=== PATIENT | female | born 1985 | race Caucasian/White ===

== ENCOUNTER 2023-09-24 22:37 | Inpatient (IN) ==
[2023-09-24] MEDS ORDERED: PENICILLIN GK 6 MU in DEXTROSE 5% 250 ML IV STA (23:16)
[2023-09-24] MEDS ORDERED: LIDOCAINE 1% LOCAL 20 ML VIAL INFIL PRN (23:16)
[2023-09-24] MEDS ORDERED: OXYTOCIN 30 UNITS/NSS 30 UNITS/500 ML BAG IV PRN (23:16)
[2023-09-24] MEDS: LACTATED RINGER'S 1,000 ML IV PRN (23:47)
[2023-09-24 23:58] LABS: Hematocrit (blood only) 38.2 % (37.0-47.0); Mean Corpuscular Hemoglobin 31.6 pg (25.0-34.0); Mean Corpuscular Volume 92.7 fL (80.0-100.0); Mean Platelet Volume 11.9 fL (9.4-12.4); Platelet Count 201 K/uL (130-400); RDW Coefficient of Variation 12.5 % (11.5-14.5); RDW Standard Deviation 42.3 fL (36.4-46.3); Red Blood Count 4.12 M/uL (4.20-5.40); White Blood Count 11.41 K/ul (4.8-10.8)
[2023-09-25] MEDS: PENICILLIN GK 3 MU in DEXTROSE 5% 100 ML IV PRN ×2 (03:21→07:33)
--- NOTE | 2023-09-25 03:55 | History & Physical Report ---
Date of Service September 25, 2023 Assessment & Plan (1) Post term over 40 weeks: (2) Group B streptococcal infection during : Plan admitted, iv and labs done. fhts categ1. some progress in labor. offered arom, pt declines, pcn for gbs pos Admission and Anticipated Discharge Date Admission Date: September 24, 2023 History of Present Illness Chief Complaint: labor Primary Care Provider: NO PCP 38yo at 40w6d ega presents to L&D with regular ctx. Exam on arrival with regular ctx and 4-5cm. No rom. No vb. +FM. GBS pos and 2nd bag of pcn hanging. Wants to labor unmedicated and declines arom. PNC c/b 1. AMA 2. GBS pos PNL rh pos, ri, gbs pos OBH: x 3 GYNH: nl paps no stds Allergies Allergy/AdvReac Type Severity Reaction Status Date / Time No Known Allergies Allergy Verified 09/24/23 22:47 Home Medications Medication Instructions Recorded Confirmed Type prenat.vits,lonnie,[id number]-xpwy-heapt 1 tab PO DAILY 02/02/23 09/24/23 History Patient History Medical History Group B streptococcal infection during (spontaneous vaginal delivery) 2004,2007,2017 History of chicken pox Surgical History Status post surgery Cyst removed from back Family History Denies family history of Ovarian cancer Breast cancer Colorectal cancer Social History (Updated 02/02/23 @ 09:04 by Elaine Eduardo) Smoking Status: Never smoker Do You Dip or Chew Tobacco: No; Hx Alcohol Use: No Hx Substance Use: No Preferred Language: Irish Communication Ability: Effective Tape Weaver Required: No Beliefs That Will Affect Care: None marital status: marital status details: Vero Rascon (45) [phone] Current Living Situation: Spouse Current Living Situation Comment: House with and kids current occupational status: employed current occupation: [employer] Insurance Other Information That Helps Us Care for You: No Feels Safe at Home: Yes Safety Concerns: Feels Safe At This Time Assistive Devices: None Review of Systems as per Subjective / HPI Physical Exam Constitutional: WD/WN, vitals as above Respiratory: normal respiratory effort, lungs clear to auscultation Cardiovascular: Rate/Rhythm: regular rate and regular rhythm Gastrointestinal (Abdomen): soft gravid nt efw 8-9# Musculoskeletal: no edema Neurologic: grossly normal Psychiatric: A+Ox3, euthymic affect Genitourinary: Manual OB Exam: + cervical dilation (5-6), + cervical effacement (80) and + station -2 OB Exam Monitor Tracing: + external FHT mon itor used, + external uterine monitor used (q3), + category I and + normal FHT variability Results & Data Vital Signs (Past 12 Hours) Vital Signs Temp Pulse Resp BP O2 Del Method 09/25/23 02:13 97.9 F 75 20 122/64 09/24/23 22:56 98.1 F 61 18 107/76 09/24/23 22:47 98.1 F 18 Room Air Coding Level of Care Code None Diagnoses Post term over 40 weeks O48.0 Group B streptococcal infection during O98.819; B95.1
[2023-09-25] MEDS ORDERED: ePHEDrine sulfate 50 MG/ML AMP ONE (05:16)
[2023-09-25] MEDS ORDERED: fentANYL 2 MCG/ML BUPIVacaine 0.125%-NSS 100ML BAG ONE (05:16)
[2023-09-25] MEDS ORDERED: BUPIVACAINE 0.25% PF 30 ML VIAL ONE (05:16)
[2023-09-25] MEDS ORDERED: SODIUM CHLORIDE 0.9% PF INJ 10 ML VIAL ONE (05:16)
[2023-09-25] MEDS ORDERED: fentaNYL citrate PF 100 MCG/2 ML VIAL ONE (05:16)
[2023-09-25] MEDS ORDERED: LIDOCAINE 2%/EPINEPHRINE 1:200,000 20 ML PF ONE (05:17)
[2023-09-25] MEDS ORDERED: ONDANSETRON INJ 2 MG/ML 2 ML VIAL IV PRN (05:25)
[2023-09-25] MEDS ORDERED: NALBUPHINE HCL 5 MG in SYRINGE 0 ML IV PRN (05:25)
[2023-09-25] MEDS ORDERED: diphenhydrAMINE 50 MG/ML VIAL IV PRN (05:25)
[2023-09-25] MEDS ORDERED: BUPIVACAINE 0.25% PF 30 ML VIAL EPI PRN (05:25)
[2023-09-25] MEDS ORDERED: fentaNYL citrate PF 100 MCG/2 ML VIAL EPI STA (05:25)
[2023-09-25] MEDS ORDERED: ePHEDrine sulfate 50 MG/ML AMP IV PRN (05:25)
[2023-09-25] MEDS ORDERED: SODIUM CHLORIDE 0.9% PF INJ 10 ML VIAL EPI PRN (05:25)
[2023-09-25] MEDS ORDERED: BUPIVACAINE 0.25% PF 30 ML VIAL EPI STA (05:25)
[2023-09-25] MEDS ORDERED: ROPIVACAINE 0.5% PF 5 MG/ML 20 ML VIAL EPI PRN (05:25)
[2023-09-25] MEDS ORDERED: LIDOCAINE 2% MPF LOCAL 5 ML VIAL EPI PRN (05:25)
[2023-09-25] MEDS ORDERED: LIDOCAINE 2%/EPINEPHRINE 1:200,000 20 ML PF EPI STA (05:25)
[2023-09-25] MEDS ORDERED: NALOXONE HCL 0.4 MG/1 ML VIAL/CARP IV PRN (05:25)
[2023-09-25] MEDS ORDERED: SODIUM CHLORIDE 0.9% PF INJ 10 ML VIAL EPI STA (05:25)
[2023-09-25] MEDS ORDERED: NALOXONE HCL 1 MG in SODIUM CHLORIDE 0.9% 1,000 ML IV PRN (05:25)
[2023-09-25] MEDS ORDERED: fentaNYL citrate PF 100 MCG/2 ML VIAL EPI PRN (05:25)
[2023-09-25] MEDS ORDERED: fentANYL 2 MCG/ML BUPIVacaine 0.125%-NSS 100ML BAG EPI PRN (05:25)
--- NOTE | 2023-09-25 05:25 | Anesthesiology Consultation ---
Date of Service September 25, 2023 Assessment & Plan ASA ASA2 Proposed Anesthesia Anesthesia Type: Labor Epidural Risk / Benefits Reviewed With: PT / POA / Parent / Guardian, Accepts Plan and Informed Consent Obtained History Height/Weight Height: 5 ft Weight: 77.111 kg Allergies Allergy/AdvReac Type Severity Reaction Status Date / Time No Known Allergies Allergy Verified 09/24/23 22:47 Medications Home Medications Medication Instructions Recorded Confirmed Last Taken prenat.vits,lonnie,wok-stkq-qskzr 1 tab PO DAILY 02/02/23 09/24/23 09/24/23 Active Medications Generic Name Dose Route Start Last Admin Trade Name Freq PRN Reason Stop Dose Admin Lactated Ringer's 1,000 mls @ 125 mls/hr 09/24/23 23:16 09/25/23 05:12 Lr IV 09/26/23 23:15 999 mls/hr .Q8H PRN Infusion L&D Protocol Protocol Penicillin G Potassium 3 mu/ 106 mls @ 100 mls/hr 09/25/23 02:16 09/25/23 04:25 Dextrose IV 10/05/23 02:15 Infused Q4H PRN Infusion GBS(+) Until Delivery Past Medical History Medical History Group B streptococcal infection during (spontaneous vaginal delivery) 2004,2007,2017 History of chicken pox Exercise / Class Metabolic Activity II 4-5 Yardwork/Stairs/Walk up hill Past Family History Family History Denies family history of Ovarian cancer Breast cancer Colorectal cancer Past Surgical History Surgical History Status post surgery Cyst removed from back Past Anesthesia History No Hx of Anesthesia Complications and No Family Hx of Anesthesia Complications History of PONV No Hx of PONV and No Hx of Motion Sickness Social History Smoking Status: Never smoker Do You Dip or Chew Tobacco: No Hx Alcohol Use: No Hx Substance Use: No Review of Systems denies fever/cough/ colds/ chest pain/ SOB/ LYNN denies LYNN Physical Exam Vital Signs Last Vital Signs Temp 36.6 C 09/25/23 02:13 Pulse 90 09/25/23 05:22 Resp 20 09/25/23 02:13 BP 122/64 09/25/23 02:13 Pulse Ox 98 09/25/23 05:22 O2 Del Method Room Air 09/24/23 22:47 ENMT Mouth: no TMJ abnormality and no dentition abnormality Thyromental Distance: > or= 3.5 Finger Breadths Mallampati Class: II Neck neck extension not limited Respiratory normal respiratory effort; no respiratory distress Auscultation: lungs clear to auscultation bilaterally Cardiovascular Rate/Rhythm: regular rate and regular rhythm Neurologic moves all extremities Psychiatric Orientation: alert and oriented x 3 Testing Laboratory Results 09/24/23 23:38
[2023-09-25] MEDS: LACTATED RINGER'S 1,000 ML IV PRN ×2 (05:59→09:36)
[2023-09-25] MEDS ORDERED: OXYTOCIN 30 UNITS/NSS 30 UNITS/500 ML BAG IV PRN ×2 (08:29→10:41)
--- NOTE | 2023-09-25 08:32 | Labor Progress Brief Note ---
Date of Service September 25, 2023 Subjective pt with urge to push. Assessment & Plan (1) Post term over 40 weeks: (2) Group B streptococcal infection during : Plan no signficant cx change. cx swollen on right. rec pitocin augmentation. fhts categ 1 but occas variable. will try to change positions. pcn for gbs. Admission and Anticipated Discharge Date Admission Date: September 24, 2023 Physical Exam Constitutional: WD/WN, vitals as above Genitourinary: Manual OB Exam: + cervical dilation 7 cm, + cervical effacement (thick swollen on right. 80% on left) and + station -1 OB Exam Monitor T racing: + external FHT monitor used, + external uterine monitor used (q4-7), + category I and + normal FHT variability Results & Data Vital Signs (Past 12 Hours) Vital Signs Temp Pulse Resp BP Pulse Ox O2 Del Method 09/25/23 08:27 80 94 09/25/23 08:24 76 108/64 09/25/23 08:22 81 95 09/25/23 08:17 81 96 09/25/23 08:12 81 94 09/25/23 08:09 75 130/73 09/25/23 08:07 83 87 L 09/25/23 08:06 84 88 L 09/25/23 08:02 79 97 09/25/23 07:57 91 H 97 09/25/23 07:53 88 124/84 09/25/23 07:52 119 H 100 09/25/23 07:47 95 H 99 09/25/23 07:42 87 98 09/25/23 07:38 88 130/78 09/25/23 07:37 96 H 97 09/25/23 07:32 94 H 97 09/25/23 07:27 84 97 09/25/23 07:23 98 H 119/71 09/25/23 07:22 96 H 97 09/25/23 07:17 91 H 96 09/25/23 07:15 18 09/25/23 07:15 97.9 F 18 09/25/23 07:12 93 H 96 09/25/23 07:07 91 H 96 09/25/23 07:04 88 105/59 L 09/25/23 07:02 92 H 94 09/25/23 07:00 82 107/58 L 09/25/23 06:57 86 18 95 09/25/23 06:55 86 106/57 L 09/25/23 06:52 94 H 94 09/25/23 06:51 87 103/59 L 09/25/23 06:47 97 H 96 09/25/23 06:46 97 H 97/53 L 09/25/23 06:42 80 94 09/25/23 06:39 99 H 97/55 L 09/25/23 06:37 91 H 95 09/25/23 06:34 82 105/58 L 09/25/23 06:32 82 95 09/25/23 06:30 78 109/57 L 09/25/23 06:27 87 95 09/25/23 06:24 91 H 90/53 L 09/25/23 06:22 86 96 09/25/23 06:19 90 107/59 L 89 L 09/25/23 06:17 87 99 09/25/23 06:14 100 H 104/56 L 09/25/23 06:12 92 H 95 09/25/23 06:09 97 H 111/58 L 09/25/23 06:07 101 H 97 09/25/23 06:03 92 H 113/60 09/25/23 06:02 88 93 09/25/23 06:01 88 117/60 09/25/23 05:59 86 117/60 09/25/23 05:57 82 09/25/23 05:57 83 111/57 L 95 09/25/23 05:55 82 104/55 L 09/25/23 05:54 93 09/25/23 05:54 72 09/25/23 05:54 69 100/59 L 09/25/23 05:52 74 100 09/25/23 05:51 74 09/25/23 05:51 84/48 L 09/25/23 05:51 83 87/51 L 09/25/23 05:50 93 H 100/59 L 09/25/23 05:48 96 H 113/66 09/25/23 05:47 87 99 09/25/23 05:46 85 126/60 09/25/23 05:44 95 H 126/77 09/25/23 05:42 88 97 09/25/23 05:41 88 132/90 09/25/23 05:37 87 98 09/25/23 05:32 94 H 98 09/25/23 05:29 93 H 123/85 09/25/23 05:27 100 H 99 09/25/23 05:22 90 98 09/25/23 02:13 97.9 F 75 20 122/64 09/24/23 22:56 98.1 F 61 18 107/76 09/24/23 22:47 98.1 F 18 Room Air Coding Level of Care Code None Diagnoses Post term over 40 weeks O48.0 Group B streptococcal infection during O98.819; B95.1
--- NOTE | 2023-09-25 10:27 | Delivery Summary ---
Vaginal Delivery Summary Date of Service September 25, 2023 Vaginal Delivery Summary The patient dilated to complete and pushed to deliver a viable female infant Apgars 89 and via over intact perineum. Shoulders and body delivered with ease rapidly thereafter. was vigorous and crying at . Mouth and nose bulb suctioned. Cord clamped at 60 seconds of life and infant to maternal abdomen where the cord was then doubly clamped and cut. Placenta delivered spontaneously and intact, three-vessel cord. Hemostasis achieved with dilute pitocin and uterine massage and drainage of the bladder for approximately 300 cc under sterile conditions. Cervix and sulci intact. EBL 300 cc. Mother and baby stable in recovery. [facility] Vaginal Delivery Charge Delivery Type Details:
[2023-09-25] MEDS ORDERED: OXYTOCIN 20 UNITS/LR 1,002 ML IV SCH (10:41)
[2023-09-25] MEDS ORDERED: HYDROCORTISONE ACETATE 25 MG SUPP PR PRN (10:41)
[2023-09-25] MEDS ORDERED: BENZOCAINE 20% SPRY 85 APPLN/85 GM CAN EXT PRN (10:41)
[2023-09-25] MEDS ORDERED: DIPHTHER/TETAN/PERTUS Vaccine (Tdap, Adol/Adult) 0.5mL IM ONE (10:41)
[2023-09-25] MEDS ORDERED: bisacodyL 10 MG SUPP PR PRN (10:41)
[2023-09-25] MEDS ORDERED: ACETAMINOPHEN 325 MG TAB PO PRN (10:41)
[2023-09-25] MEDS ORDERED: oxyCODONE/ACETAMINOPHEN 5mg/325mg TAB PO PRN (10:41)
[2023-09-25] MEDS ORDERED: IBUPROFEN 600 MG TAB PO PRN (10:41)
--- NOTE | 2023-09-25 10:54 | Anesthesia Procedure Note ---
Date of Service September 25, 2023 Anesthesia Post Epidural Note Vital Signs Vital Signs: Temp Pulse Resp BP Pulse Ox O2 Del Method 98.2 F 93 H 16 135/70 98 Room Air 09/25/23 09:10 09/25/23 10:39 09/25/23 09:10 09/25/23 10:39 09/25/23 10:22 09/24/23 22:47 Notes Mental Status: alert / awake / arousable and participated in evaluation Nausea / Vomiting: adequately controlled Pain: adequately controlled Airway Patency, RR, SpO2: stable & adequate BP & HR: stable & adequate Hydration State: stable & adequate Neuraxial Anesthesia: was administered and sensory block is resolving Anesthetic Complications: no major complications apparent and Pt Satisfied with anesthetic care Epidural: Removed without complications and With tip intact
[2023-09-25] MEDS ORDERED: OXYTOCIN 20 UNITS/1002ML LR IV ONE (11:05)
[2023-09-25] MEDS: DOCUSATE SODIUM 100 MG CAP PO SCH (20:20)
--- NOTE | 2023-09-26 06:13 | Obstetrical Progress Note ---
Date of Service <Fabiola Mcgarry DO - Last Filed: 09/26/23 06:21> September 26, 2023 Assessment & Plan <Fabiola Mcgarry DO - Last Filed: 09/26/23 06:21> (1) care following vaginal delivery: (2) Elderly multigravida: Trimester: third trimester Qualified Code(s): O09.523 - Supervision of elderly multigravida, third trimester (3) Group B streptococcal infection during : Plan Feels well today. Eating well, voiding well, ambulating well. Pain well controlled without need for analgesics at this time. Routine care; OOB, ambulation, continue regular diet. Anticipate discharge 24-48 hours after , likely later today. After discharge will have 6 week follow-up with Dr. Walters. <Eden Walters MD, FACOG - Last Filed: 09/26/23 07:08> (1) care following vaginal delivery: (2) Elderly multigravida: (3) Group B streptococcal infection during : Subjective <Fabiola Mcgarry DO - Last Filed: 09/26/23 06:21> Pt is a 38 y/o female who is PPD#1 following at 40 6/7 weeks. complicated by AMA, GBS+. Today, pt states she is feeling well. She states she is very tired today but otherwise is feeling well and was hoping to go home. She has been ambulating, voiding, and tolerating oral intake without difficulty. She is breast feeding and it has been going well. She states her bleeding is much better today compared to yesterday. Her pain is a little worse today as her epidural has worn off but she has not needed any pain meds since the pain is still mild. No questions or complaints at this time. Constitutional: no fever, no chills or no sweats Respiratory: no dyspnea Cardiovascular: no chest pain or no palpitations Genitourinary (female): no dysuria Neurologic: no headache(s) no changes in vision, no headaches Physical Exam <Fabiola Mcgarry DO - Last Filed: 09/26/23 06:21> General: Alert, oriented. No acute distress. Cardiac: Regular rate and rhythm, no murmurs, rubs, or gallops. Respiratory: Clear to auscultation bilaterally, no wheezes/rales/rhonchi. No increased work of breathing. Symmetrical chest rise. No respiratory distress. Abdomen: Soft, nontender, nondistended. Bowel sounds present. Uterus: Uterine fundus firm. Lower extremities: No deep calf pain. Results & Data <Fabiola Mcgarry DO - Last Filed: 09/26/23 06:21> Vital Signs (Past 12 Hours) Vital Signs Temp Pulse Resp BP Pulse Ox O2 Del Method 09/26/23 03:03 36.3 C L 69 18 123/78 97 Room Air 09/25/23 22:48 36.6 C 87 18 120/72 96 Room Air 09/25/23 18:52 36.2 C L 89 18 132/80 96 Room Air Supervising Physician <Eden Walters MD, FACOG - Last Filed: 09/26/23 07:08> Co-Signing Physician Notes Resident Physician Supervision Note: I was present with Dr. Mcgarry during the history and exam. I discussed the case with the resident and agree with the findings and plan as documented in the note. Any exceptions or clarifications are listed here: stable, doing well. ready for dc home, abd soft ff 2down nt, ext nt calves. instructions reviewed, f/u 6wk pp. breast, rh pos, ri. Documented By: Eden Walters MD, FACOG Resident Activity Tracking <Fabiola Mcgarry DO - Last Filed: 09/26/23 06:21> Resident Involvement: Resident Care Provided Care Provided: OB Delivery
[2023-09-26] MEDS ORDERED: PRENATAL VITAMIN 1 TAB PO SCH (08:00)
[2023-09-26] MEDS: DOCUSATE SODIUM 100 MG CAP PO SCH (08:24)
== END 2023-09-26 11:30 | disposition home or self-care (01) | DRG 807 ==
LOC: OPB 22:37 → 4S1 22:40 → 4E2 09-25 13:45
DX: O99.824 Streptococcus B carrier state complicating childbirth; Z3A.40 40 weeks gestation of pregnancy; Z37.0 Single live birth; O48.0 Post-term pregnancy